=== PATIENT | male | born 1960 | race Two or more races ===

== ENCOUNTER 2022-04-22 14:27 | Inpatient (IN) | payer MEDICAID ==
[~2022-04-22] VITALS: Ht 177.8 cm; Wt 123.0 kg
[2022-04-22] MEDS ORDERED: ASPirin 325 MG TAB PO ONE (14:45)
[2022-04-22] MEDS ORDERED: NITROGLYCERIN 0.4 MG SL TAB SL ONE (14:45)
[2022-04-22 15:01] LABS: Eosinophils # (auto) 0.1 10 ^3/uL (0-0.8); Hemoglobin 15.4 g/dL (13.5-17.5); Neutrophils # (auto) 5.6 10 ^3/uL (1.6-8.6); White Blood Cell 8.3 10^3/uL (4.4-10.8)
[2022-04-22 15:02] LABS: Basophils # (auto) 0.1 10 ^3/uL (0-0.2); Basophils % (auto) 0.9 % (0.0-2.0); Eosinophils % (auto) 0.7 % (0.0-7.0); Hematocrit 45.2 % (41.0-53.0); Lymphocytes % (auto) 24.7 % (10.0-50.0); Mean Corpuscular Hemoglobin 25.9 pg (28.0-32.0); Mean Corpuscular Hgb Conc. 34.1 g/dL (32.0-36.0); Monocytes # (auto) 0.5 10 ^3/uL (0-1.3); Monocytes % (auto) 6.1 % (0.0-12.0); Neutrophils % (auto) 67.6 % (37.0-80.0); Nucleated Red Blood Cells % 0.2 %; Red Blood Cells 5.95 10^6/uL (4.5-5.90); Red Cell Distribution Width 14.4 % (11.8-14.3)
[2022-04-22 16:06] LABS: Albumin 3.6 g/dL (3.4-5.0); Calcium 9.4 mg/dL (8.5-10.1); Magnesium 2.2 mg/dL (1.6-2.6); Potassium 3.4 mmol/L (3.5-5.1)
[2022-04-22 16:09] LABS: BUN/Creatinine Ratio 17.5; Bilirubin, Total 1.2 mg/dL (0.2-1.0); Total Protein 7.8 g/dL (6.4-8.2)
[2022-04-22] MEDS ORDERED: MORPHINE SULFATE 4 MG/ML SYR/VIAL IV PRN (18:45)
[2022-04-22] MEDS ORDERED: ONDANSETRON HCL 4 MG/2 ML VIAL IV PRN (18:45)
[2022-04-22] MEDS ORDERED: NITROGLYCERIN 0.4 MG SL TAB SL PRN (18:45)
[2022-04-22] MEDS ORDERED: ACETAMINOPHEN 325 MG TAB PO PRN (18:45)
[2022-04-22] MEDS ORDERED: ENOXAPARIN SOD 30 MG/0.3 ML SYRINGE IV ONE (18:45)
[2022-04-22 19:04] LABS: INR 0.99 (0.9-1.15)
[2022-04-22] MEDS ORDERED: ATORVASTATIN 20 MG TAB PO SCH (22:00)
[2022-04-22 23:31] VITALS: BP 134/87
[2022-04-23 05:00] VITALS: BP 134/92
[2022-04-23 06:01] LABS: Basophils # (auto) 0 10 ^3/uL (0-0.2); Eosinophils # (auto) 0.1 10 ^3/uL (0-0.8); Hemoglobin 14.4 g/dL (13.5-17.5); Mean Corpuscular Hemoglobin 25.5 pg (28.0-32.0); Monocytes # (auto) 0.5 10 ^3/uL (0-1.3); Neutrophils # (auto) 5.1 10 ^3/uL (1.6-8.6); Nucleated Red Blood Cells % 0.1 %; White Blood Cell 7.4 10^3/uL (4.4-10.8)
[2022-04-23 06:03] LABS: Basophils % (auto) 0.6 % (0.0-2.0); Eosinophils % (auto) 1.3 % (0.0-7.0); Hematocrit 42.9 % (41.0-53.0); Lymphocytes # (auto) 1.7 10 ^3/uL (0.4-5.4); Lymphocytes % (auto) 22.7 % (10.0-50.0); Mean Corpuscular Hgb Conc. 33.5 g/dL (32.0-36.0); Mean Corpuscular Volume 76.1 fL (80.0-100.0); Monocytes % (auto) 6.9 % (0.0-12.0); Neutrophils % (auto) 68.5 % (37.0-80.0); Red Blood Cells 5.64 10^6/uL (4.5-5.90); Red Cell Distribution Width 14.5 % (11.8-14.3)
[2022-04-23 06:10] LABS: Calcium 9.2 mg/dL (8.5-10.1); Potassium 3.7 mmol/L (3.5-5.1)
[2022-04-23 06:12] LABS: BUN/Creatinine Ratio 22.4
[2022-04-23 08:00] VITALS: BP 142/97
[2022-04-23 09:00] VITALS: BP 130/98
[2022-04-23] MEDS ORDERED: DOCUSATE SOD 100 MG CAP PO SCH (10:00)
[2022-04-23] MEDS ORDERED: ASPirin 81 mg TAB PO SCH (10:00)
[2022-04-23] MEDS ORDERED: LISINOPRIL 10 MG TAB PO SCH (10:00)
[2022-04-23] MEDS ORDERED: ENOXAPARIN SOD 40 MG/0.4 ML SYRINGE SC SCH (10:00)
[2022-04-23] MEDS ORDERED: ASPI-325 PO (12:56)
[2022-04-23 13:00] VITALS: BP 142/97
[2022-04-23 15:16] VITALS: BP 130/98
== END 2022-04-23 18:00 | disposition home health service (06) | DRG 203 ==
LOC: ER 14:27 → TELE 18:41 → TELE-EAST 23:25
PROVIDERS: ADMIT Nurse Practitioner Family; ATTEND Nurse Practitioner Family
DX: R07.9 Chest pain, unspecified (principal); E66.9 Obesity, unspecified; E78.5 Hyperlipidemia, unspecified; I10 Essential (primary) hypertension; Z20.822 Contact with and (suspected) exposure to COVID-19; I48.91 Unspecified atrial fibrillation; Z79.01 Long term (current) use of anticoagulants; Z79.82 Long term (current) use of aspirin; Z68.38 Body mass index [BMI] 38.0-38.9, adult
CPT/HCPCS: 36415; 36600; 71046; 80048; 80053; 82805; 83735; 83880; 84484; 85025; 85379; 85610; 87426; 93005; 93306; G0378

== ENCOUNTER 2024-05-04 11:04 | Emergency (ER) | payer MEDICARE, MEDICAID ==
[~2024-05-04] VITALS: Ht 177.8 cm; Wt 117.0 kg
[~2024-05-04 11:04] MED LIST: ASPI-325 PO
[2024-05-04 11:12] VITALS: BP 154/98; PULSE 118; RESP 20; O2SAT 96
--- NOTE | 2024-05-04 11:42 | ED.PDOC ---
Musculoskeletal HPI Comments 63Y M with PMHx Afib and HTN presents to ED for chief complaint lt knee pain s/p fall. Pt states he tripped and fell 2 weeks ago and hurt his left knee. Pt did experience LOC. Pt denies headache, back pain, neck pain, chest pain, and SOB. Pt is unable to bear weight on lt knee and has limited ROM. Pt is taking blood thinners. Chief Complaint: Fall Injury Time Seen by MD: 11:11 Primary Care Provider: Unsure Reviewed Notes: Medications, Allergies Allergies: Coded Allergies: NO KNOWN ALLERGIES (Unverified , 03/22/14) Home Meds Active Scripts Aspirin (Aspirin Low Dose) 81 Mg Tab, 81 MG PO DAILY, #30 TAB Prov:KELTON DENISE MD 04/23/22 Information Source: Patient, Relative (Child) Mode of Arrival: Ambulatory Location: Left Extremity Location: Knee Timing: Weeks Severity: Moderate Able to Move Extremity: Yes Bear Weight: No Pain: Moderate Mechanism: Unknown Circumstances: Fall Onset of Symptoms: After Trauma Symptoms: Pain DVT Risk Factors: NONE Last Tetanus: UTD Associated signs and symptoms: Knee pain (left) Past Medical History PAST MEDICAL HISTORY: AFIB, HTN Surgical History: Denies all surgeries Family History Family History: Unobtainable Social History Smoker: Non-Smoker Alcohol: Denies ETOH Use Drugs: Denies Drug Use Lives In: Home Constitutional: denies: chills, diaphoresis, fatigue, fever, malaise, sweats, weakness, others EENTM: denies: blurred vision, double vision, ear bleeding, ear discharge, ear drainage, ear pain, ear ringing, eye pain, eye redness, hearing loss, mouth pain, mouth swelling, nasal discharge, nose bleeding, nose congestion, nose pain, photophobia, tearing, throat pain, throat swelling, voice changes, others Respiratory: denies: cough, hemoptysis, orthopnea, SOB at rest, shortness of breath, SOB with excertion, stridor, wheezing, others Cardiovascular: denies: chest pain, dizzy spells, diaphoresis, Dyspnea on exertion, edema, irregular heart beat, left arm pain, lightheadedness, palpitations, PND, syncope, others Gastrointestinal: denies: abdomen distended, abdominal pain, blood streaked bowels, constipated, diarrhea, dysphagia, difficulty swallowing, hematemesis, melena, nausea, poor appetite, poor fluid intake, rectal bleeding, rectal pain, vomiting, others Genitourinary: denies: burning, dysuria, flank pain, frequency, hematuria, incontinence, penile discharge, penile sore, pain, testicle pain, testicle swelling, urgency, others Neurological: denies: dizziness, fainting, headache, left sided numbness, left sided weakness, numbness, paresthesia, pre-existing deficit, right sided numbness, right sided weakness, seizure, speech problems, tingling, tremors, weakness, others Musculoskeletal: reports: others (lt knee pain); denies: back pain, gout, joint pain, joint swelling, muscle pain, muscle stiffness, neck pain Integumetry: denies: bruises, change in color, change in hair/nails, dryness, laceration, lesions, lumps, rash, wounds, others Allergic/Immunocompromised: denies: Difficulty Healing, Frequent Infections, Hives, Itching, others Hematologic/Lymphatic: denies: anemia, blood clots, easy bleeding, easy bruising, swollen glands, others Endocrine: denies: excessive hunger, excessive sweating, excessive thirst, excessive urination, flushing, intolerance to cold, intolerance to heat, unexplained weight gain, unexplained weight loss, others Psychiatric: denies: anxiety, bipolar disorder, depression, hopeless, panic disorder, schizophrenia, sleepless, suicidal, others All Other Systems: Reviewed and Negative Physical Exam General Appearance: Moderate Distress, Normal HEENT: Normal ENT Inspection, Pharynx Normal, TMs Normal Neck: Full Range of Motion, Non-Tender, Normal, Normal Inspection Respiratory: Chest Non-Tender, Lungs Clear, No Accessory Muscle Use, No Respiratory Distress, Normal Breath Sounds Cardiovascular: Irregular, No Edema, No JVD, No Murmur, No Gallop, Normal Peripheral Pulses Breast Exam: Deferred Gastrointestinal: No Organomegaly, Non Tender, No Pulsatile Mass, Normal Bowel Sounds, Soft Genitalia: Deferred Pelvic: Deferred Rectal: Deferred Extremities: No calf tenderness, Normal capillary refill, Normal inspection, Normal range of motion, Non-tender, No pedal edema Musculoskeletal : Apperance: Normal Neurologic: Alert, sewing techniques demonstrator II-XII nml as Tested, No Motor Deficits, Normal Affect, Normal Mood, No Sensory Deficits Cerebellar Function: NOT DONE Reflexes: NOT DONE Skin: Dry, Normal Color, Warm Peripheral Pulses: 3+ Radial (R), 3+ Radial (L) Lymphatic: No Adenopathy Was a procedure done? Was a procedure done?: No Differential Diagnosis EXT Differential Diagnosis: Fracture, Sprain, Dislocation, Contusion, Strain X-Ray, Labs, Meds, VS Vital Signs Date Time Temp Pulse Resp B/P (MAP) Pulse Ox O2 Delivery O2 Flow Rate FiO2 05/04/24 11:12 98.0 118 20 154/98 (116) 96 Lab Test 05/04/24 11:54 Range/Units White Blood Count 7.0 4.4-10.8 10^3/uL Red Blood Count 5.91 H 4.5-5.90 10^6/uL Hemoglobin 15.5 13.5-17.5 g/dL Hematocrit 45.8 41.0-53.0 % Mean Corpuscular Volume 77.5 L 80.0-100.0 fL Mean Corpuscular Hemoglobin 26.1 L 28.0-32.0 pg Mean Corpuscular Hemoglobin Concent 33.7 32.0-36.0 g/dL Red Cell Distribution Width 15.4 H 11.8-14.3 % Platelet Count 275 140-450 10^3/uL Mean Platelet Volume 8.2 6.9-10.8 fL Neutrophils (%) (Auto) 67.5 37.0-80.0 % Lymphocytes (%) (Auto) 25.0 10.0-50.0 % Monocytes (%) (Auto) 6.1 0.0-12.0 % Eosinophils (%) (Auto) 1.0 0.0-7.0 % Basophils (%) (Auto) 0.4 0.0-2.0 % Neutrophils # (Auto) 4.7 1.6-8.6 10 ^3/uL Lymphocytes # (Auto) 1.7 0.4-5.4 10 ^3/uL Monocytes # (Auto) 0.4 0-1.3 10 ^3/uL Eosinophils # (Auto) 0.1 0-0.8 10 ^3/uL Basophils # (Auto) 0 0-0.2 10 ^3/uL Nucleated Red Blood Cells 0.1 % Sodium Level 140 136-145 mmol/L Potassium Level 3.2 L 3.5-5.1 mmol/L Chloride Level 107 98-107 mmol/L Carbon Dioxide Level 25 20-31 mmol/L Anion Gap 8 5-15 Blood Urea Nitrogen 24 H 9-23 mg/dL Creatinine 1.16 0.700-1.30 mg/dL Glomerular Filtration Rate Calc 70 >90 mL/min BUN/Creatinine Ratio 20.7 H 10.0-20.0 Serum Glucose 139 H 74-106 mg/dL Calcium Level 10.0 8.7-10.4 mg/dL Lt Knee XR: FINDINGS: No fracture is identified. Medial, lateral and patellofemoral compartment joint spaces are maintained. Alignment is anatomic. Soft tissues are within normal limits. There is a knee joint effusion. IMPRESSION: 1. No acute fracture or dislocation of the left knee. Knee joint effusion. Patient alert. Came in because of left knee pain. He did fall two weeks ago. Vitals stable. Has not seen any physician after the fall. X-ray of the knee is within normal limits. There is joint effusion. WBC within normal limits. EKG does show atrial fibrillation. Continues to have knee pain. Tachycardia. Blood pressure elevated. Possibly will need MRI. Explained to the patient. Continue cardiac monitoring. [facility] physician spoke to the patient. Spoke with orthopedic surgeon. Nothing to do inpatient. Was told to follow up with his primary care physician with orthopedic follow up. Placed a knee brace. Explained to the patient. Shortness a breath. Denies chest pain. No leg swelling. Was told to come back if there is any problem. Time of 1ST Reevaluation: 11:41 Reevaluation 1ST: Unchanged Patient Education/Counseling: Diagnosis, Treatment Family Education/Counseling: No Family Present Departure 1 Departure Time of Disposition: 15:57 Impression: Primary Impression: Atrial fibrillation Qualified Codes: I48.0 - Paroxysmal atrial fibrillation Additional Impression: Knee strain Qualified Codes: S86.912A - Strain of unspecified muscle(s) and tendon(s) at lower leg level, left leg, initial encounter Disposition: HOME / SELF CARE / HOMELESS Admit to: Med Surg Condition: Good Discharged With: Self Critical Care Note Critical Care Time?: No Stability Stability form required: No Heart Score Heart Score: Heart Score Response (Comments) Value History Slightly Suspicious 0 EKG Normal 0 Age >65 2 Risk Factors >3 or Hx ASHD 2 Troponin Normal limit 0 Total 4 I personally scribed for TOMASZ CURTIS MD ([email or web address]) on 05/04/24 at 11:42. Electronically submitted by Payton Zuluaga ([email or web address]). I personally scribed for TOMASZ CURTIS MD ([email or web address]) on 05/04/24 at 13:28. Electronically submitted by Rebel Kim ([email or web address]). I personally scribed for TOMASZ CURTIS MD ([email or web address]) on 05/04/24 at 13:33. Electronically submitted by Berna Seo ([email or web address]). I personally scribed for TOMASZ CURTIS MD ([email or web address]) on 05/04/24 at 14:06. Electronically submitted by Berna Seo ([email or web address]). I personally scribed for TOMASZ CURTIS MD ([email or web address]) on 05/04/24 at 14:30. Electronically submitted by Payton Zuluaga ([email or web address]). I personally scribed for TOMASZ CURTIS MD ([email or web address]) on 05/04/24 at 17:08. Electronically submitted by Berna Seo ([email or web address]). TOMASZ CURTIS MD May 04, 2024 11:42
--- NOTE | 2024-05-04 12:01 | DVH ---
XY L KNEE 2V XRAY INDICATION: fall TECHNICAL DATA: Frontal , oblique and lateral views were obtained of the left knee. COMPARISON: None FINDINGS: No fracture is identified. Medial, lateral and patellofemoral compartment joint spaces are maintained . Alignment is anatomic. Soft tissues are within normal limits. There is a knee joint effusion. IMPRESSION: 1. No acute fracture or dislocation of the left knee. Knee joint effusion.
[2024-05-04 12:14] LABS: Sodium 140 mmol/L (136-145)
[2024-05-04 12:15] LABS: Anion Gap 8 (5-15); Carbon Dioxide 25 mmol/L (20-31)
[2024-05-04 12:18] LABS: Basophils # (auto) 0 10 ^3/uL (0-0.2); Eosinophils # (auto) 0.1 10 ^3/uL (0-0.8); Neutrophils # (auto) 4.7 10 ^3/uL (1.6-8.6)
[2024-05-04 12:20] LABS: BUN/Creatinine Ratio 20.7 (10.0-20.0); Basophils % (auto) 0.4 % (0.0-2.0); Hematocrit 45.8 % (41.0-53.0); Hemoglobin 15.5 g/dL (13.5-17.5); Lymphocytes # (auto) 1.7 10 ^3/uL (0.4-5.4); Mean Corpuscular Hemoglobin 26.1 pg (28.0-32.0); Mean Corpuscular Hgb Conc. 33.7 g/dL (32.0-36.0); Mean Corpuscular Volume 77.5 fL (80.0-100.0); Monocytes # (auto) 0.4 10 ^3/uL (0-1.3); Monocytes % (auto) 6.1 % (0.0-12.0); Neutrophils % (auto) 67.5 % (37.0-80.0); Nucleated Red Blood Cells % 0.1 %; Platelet Count (auto) 275 10^3/uL (140-450); Red Blood Cells 5.91 10^6/uL (4.5-5.90); Red Cell Distribution Width 15.4 % (11.8-14.3)
[2024-05-04 12:22] LABS: Blood Urea Nitrogen 24 mg/dL (9-23); Chloride 107 mmol/L (98-107); Glucose 139 mg/dL (74-106); Potassium 3.2 mmol/L (3.5-5.1)
--- NOTE | 2024-05-04 16:34 | DVHHP2 ---
History of Present Illness Reason for Visit: Left knee pain status post part 2 weeks ago, chronic AFib History of Present Illness 63-year-old male with known history of chronic AFib, hypertension, morbid obesity class 2 who needs treatment of the hospital with left knee pain status post fall 2 weeks ago. The patient stated that he fell 2 weeks ago and injured his left knee bed his range of movements at left knee is very restricted. Patient also could not put weight on left knee. I was consulted for possible admission. Patient complaining of minimal pain 410 in the left knee. Orthopedics was consulted who recommended knee immobilizer on knee brace and MRI left knee. Cardiovascular: AFIB, HTN Past Surgical History: None Family History: None Smoke: No ALCOHOL: none Review of Systems Review of Systems 12 Twelve review of system are negative cm above. Allergies: Coded Allergies: NO KNOWN ALLERGIES (Unverified , 03/22/14) Exam Vital Signs Vital Signs Date Time Temp Pulse Resp B/P (MAP) Pulse Ox O2 Delivery O2 Flow Rate FiO2 05/04/24 11:12 98.0 118 20 154/98 (116) 96 Exam HEENT pupils are reactive Neck is supple CV is S1-S2 regular rate and rhythm Respiratory diminished BS on bases GI positive bowel sound Extremity no pedal edema REGISTERED REPRESENTATIVE no motor deficits except left lower extremity can not be tested because of ligamental injury to the left knee Labs/Xrays Labs Test 05/04/24 11:54 Range/Units White Blood Count 7.0 4.4-10.8 10^3/uL Red Blood Count 5.91 H 4.5-5.90 10^6/uL Hemoglobin 15.5 13.5-17.5 g/dL Hematocrit 45.8 41.0-53.0 % Mean Corpuscular Volume 77.5 L 80.0-100.0 fL Mean Corpuscular Hemoglobin 26.1 L 28.0-32.0 pg Mean Corpuscular Hemoglobin Concent 33.7 32.0-36.0 g/dL Red Cell Distribution Width 15.4 H 11.8-14.3 % Platelet Count 275 140-450 10^3/uL Mean Platelet Volume 8.2 6.9-10.8 fL Neutrophils (%) (Auto) 67.5 37.0-80.0 % Lymphocytes (%) (Auto) 25.0 10.0-50.0 % Monocytes (%) (Auto) 6.1 0.0-12.0 % Eosinophils (%) (Auto) 1.0 0.0-7.0 % Basophils (%) (Auto) 0.4 0.0-2.0 % Neutrophils # (Auto) 4.7 1.6-8.6 10 ^3/uL Lymphocytes # (Auto) 1.7 0.4-5.4 10 ^3/uL Monocytes # (Auto) 0.4 0-1.3 10 ^3/uL Eosinophils # (Auto) 0.1 0-0.8 10 ^3/uL Basophils # (Auto) 0 0-0.2 10 ^3/uL Nucleated Red Blood Cells 0.1 % Sodium Level 140 136-145 mmol/L Potassium Level 3.2 L 3.5-5.1 mmol/L Chloride Level 107 98-107 mmol/L Carbon Dioxide Level 25 20-31 mmol/L Anion Gap 8 5-15 Blood Urea Nitrogen 24 H 9-23 mg/dL Creatinine 1.16 0.700-1.30 mg/dL Glomerular Filtration Rate Calc 70 >90 mL/min BUN/Creatinine Ratio 20.7 H 10.0-20.0 Serum Glucose 139 H 74-106 mg/dL Calcium Level 10.0 8.7-10.4 mg/dL Assessment/Plan Assessment/Plan 63-year-old male with a known history of chronic AFib, hypertension, morbid obesity class 2 additional the hospital with left knee pain status post fall 2 weeks ago found to have 1. Left knee pain 2. Left knee collateral ligament injury 3. Chronic AFib 4. Hypertension 5. Morbid obesity class 2 -knee brace/knee immobilizer, pain meds, MRI left knee. Orthopedic consultation. Plan discussed with: Patient Date of Service: May 04, 2024 Billing Provider: ANTONIA DAVILA MD Common Visit Codes: NOT BILLABLE ANTONIA DAVILA MD May 04, 2024 16:34
== END 2024-05-04 19:00 | disposition home or self-care (01) ==
LOC: ER 11:04
DX: S86.912A Strain of unspecified muscle(s) and tendon(s) at lower leg level, left leg, initial encounter (principal); I48.0 Paroxysmal atrial fibrillation; I10 Essential (primary) hypertension; Z79.82 Long term (current) use of aspirin; Z79.899 Other long term (current) drug therapy; W01.0XXA Fall on same level from slipping, tripping and stumbling without subsequent striking against object, initial encounter; Y93.89 Activity, other specified; Y92.89 Other specified places as the place of occurrence of the external cause; Y99.8 Other external cause status
CPT/HCPCS: 36415; 73560; 80048; 85025

== ENCOUNTER 2025-02-28 15:22 | Inpatient (IN) | payer MEDICARE, MEDICAID ==
[~2025-02-28] VITALS: Ht 180.3 cm; Wt 112.3 kg
--- NOTE | 2025-02-28 16:00 | ED.PDOC ---
Back pain HPI HPI Comments A 64 YEAR OLD MALE PRESENTS TO THE ED WITH COMPLAINT OF LOWER BACK PAIN. PATIENT STATES HE HAS BEEN EXPERIENCING LOWER BACK PAIN THAT RADIATES DOWN HIS RIGHT LEG OFF AND ON FOR THE PAST 1 MONTH WITH WORSENING PAIN OVER THE PAST 1 WEEK. PATIENT REPORTS HIS PAIN IS WORSE WITH MOVEMENT. PATIENT NOTES THAT HE HAS ALREADY SEEN HIS PRIMARY CARE PHYSICIAN FOR THIS ISSUE AND WAS PRESCRIBED FLEXERIL, BUT NOTES THERE HAS BEEN NO IMPROVEMENT IN HIS PAIN. THE PAIN LEVEL IS 10/10 AT THIS TIME. PT REQUESTS PAIN INJECTION. PATIENT DENIES SADDLE ANESTHESIA, URINARY INCONTINENCE, BOWEL INCONTINENCE, FEVER, CHILLS, SHORTNESS OF BREATH, CHEST PAIN, ABDOMINAL PAIN, NAUSEA, VOMITING, HEADACHE, OR OTHER COMPLAINTS. NO OTHER SYMPTOMS OR MODIFYING FACTORS AT THIS TIME. PATIENT IS ALERT, ORIENTED X 4, AND HAS STEADY GAIT. Chief Complaint: Back Pain Time Seen by MD: 15:25 Primary Care Provider: Unsure Reviewed Notes: Nurses Notes, Medications, Allergies Allergies: Coded Allergies: NO KNOWN ALLERGIES (Unverified , 03/22/14) Home Meds Active Scripts Aspirin (Aspirin Low Dose) 81 Mg Tab, 81 MG PO DAILY, #30 TAB Prov:KELTON DENISE MD 04/23/22 Information Source: Patient Mode of Arrival: Ambulatory Timing: Days Duration: Since onset, Days Location of Back pain: (B) Lumbar Radiates to: Anterior: (R) Buttocks, (R) Calf, (R) Thigh Radiates to: Posterior: (R) Buttocks, (R) Calf, (R) Thigh Radiates to: Medial: (R) Buttocks, (R) Calf, (R) Thigh Radiates to: Lateral: (R) Buttocks, (R) Calf, (R) Thigh Severity: Moderate Prehospital treatment: None Quality: Aching, Cramping, Sharp Onset: Spontaneous History of: None Modifying Factors: Movement, Twisting, Walking Associated signs and symptoms: None Past Medical History PAST MEDICAL HISTORY: AFIB, HTN Past Medical History (Other): BPH Surgical History: Denies all surgeries Family History Family History: Reviewed,noncontributory to illness Social History Smoker: Non-Smoker Alcohol: Denies ETOH Use Drugs: Denies Drug Use Lives In: Home Constitutional: reports: others (ANXIOUS ); denies: chills, diaphoresis, fatigue, fever, malaise, sweats, weakness EENTM: denies: blurred vision, double vision, ear bleeding, ear discharge, ear drainage, ear pain, ear ringing, eye pain, eye redness, hearing loss, mouth pain, mouth swelling, nasal discharge, nose bleeding, nose congestion, nose pain, photophobia, tearing, throat pain, throat swelling, voice changes, others Respiratory: denies: cough, hemoptysis, orthopnea, SOB at rest, shortness of breath, SOB with excertion, stridor, wheezing, others Cardiovascular: denies: chest pain, dizzy spells, diaphoresis, Dyspnea on exertion, edema, irregular heart beat, left arm pain, lightheadedness, pa lpitations, PND, syncope, others Gastrointestinal: denies: abdomen distended, abdominal pain, blood streaked bowels, constipated, diarrhea, dysphagia, difficulty swallowing, hematemesis, melena, nausea, poor appetite, poor fluid intake, rectal bleeding, rectal pain, vomiting, others Genitourinary: denies: burning, dysuria, flank pain, frequency, hematuria, incontinence, penile discharge, penile sore, pain, testicle pain, testicle swelling, urgency, others Neurological: denies: dizziness, fainting, headache, left sided numbness, left sided weakness, numbness, paresthesia, pre-existing deficit, right sided numbness, right sided weakness, seizure, speech problems, tingling, tremors, weakness, others Musculoskeletal: reports: back pain, muscle pain; denies: gout, joint pain, joint swelling, muscle stiffness, neck pain, others Integumetry: denies: bruises, change in color, change in hair/nails, dryness, laceration, lesions, lumps, rash, wounds, others Allergic/Immunocompromised: denies: Difficulty Healing, Frequent Infections, Hives, Itching, others Hematologic/Lymphatic: denies: anemia, blood clots, easy bleeding, easy bruising, swollen glands, others Endocrine: denies: excessive hunger, excessive sweating, excessive thirst, excessive urination, flushing, intolerance to cold, intolerance to heat, unex plained weight gain, unexplained weight loss, others Psychiatric: denies: anxiety, bipolar disorder, depression, hopeless, panic disorder, schizophrenia, sleepless, suicidal, others All Other Systems: Reviewed and Negative Physical Exam General Appearance: Moderate Distress, Obese, Other (ANXIOUS ) HEENT: Normal ENT Inspection, PERRL/EOMI, Pharynx Normal, TMs Normal Neck: Full Range of Motion, Non-Tender, Normal, Normal Inspection Respiratory: Chest Non-Tender, Lungs Clear, No Accessory Muscle Use, No Respiratory Distress, Normal Breath Sounds Cardiovascular: No Edema, No JVD, No Murmur, No Gallop, Normal Peripheral Pulses, Regular Rate/Rhythm Breast Exam: Deferred Gastrointestinal: No Organomegaly, Non Tender, No Pulsatile Mass, Normal Bowel Sounds, Soft Genitalia: Deferred Pelvic: Deferred Rectal: Deferred Extremities: No calf tenderness, Normal capillary refill, Normal inspection, Normal range of motion, Non-tender, No pedal edema, Other (NO REDNESS, SWELLING AND DVT OF RIGHT LOWER EXTREMITY, NO DVT SIGNS. ) Musculoskeletal : Location: Bilateral Extremity Location: Back Apperance: Tenderness: Moderate (TENDERNESS AND MUSCLE SPASM ON LOW BACK, NO BONY TENDERNESS, SWELLING AND DEFORMITY. NO CVA TENDERNESS. ) Neurologic: Alert, day habilitation supervisor II-XII nml as Tested, No Motor Deficits, Normal Affect, Normal Mood, No Sensory Deficits Cerebellar Function: Normal Reflexes: Normal Skin: Dry, Normal Color, Warm Peripheral Pulses: 2+ carotid (R), 2+ carotid (L), 2+ dorsalis pedis (R), 2+ dorsalis pedis (L) Lymphatic: No Adenopathy Was a procedure done? Was a procedure done?: No Back Pain Differential Dx Differential Diagnosis: Musculoskeletal Pain Other Differential Diagnosis DDD, LUMBAR RADICULOPATHY, SPINAL STENOSIS X-Ray, Labs, Meds, VS Vital Signs Date Time Temp Pulse Resp B/P (MAP) Pulse Ox O2 Delivery O2 Flow Rate FiO2 02/28/25 17:16 98 18 96 Room Air 02/28/25 17:16 98.7 98 18 124/90 (101) 96 98.7 02/28/25 16:43 84 18 125/86 02/28/25 15:25 97.4 77 18 122/92 98 97.4 Lab Test 02/28/25 17:22 02/28/25 17:12 Range/Units Urine Color Pending Urine Clarity Pending Urine pH Pending Urine Specific [place] Pending Urine Protein Pending Urine Ketones Pending Urine Blood Pending Urine Nitrite Pending Urine Bilirubin Pending Urine Urobilinogen Pending Urine Leukocyte Esterase Pending Urine RBC Pending Urine Microscopic WBC Pending Urine Squamous Epithelial Cells Pending Urine Bacteria Pending Urine Glucose Pending White Blood Count 9.9 4.4-10.8 10^3/uL Red Blood Count 5.57 4.5-5.90 10^6/uL Hemoglobin 14.1 13.5-17.5 g/dL Hematocrit 41.4 41.0-53.0 % Mean Corpuscular Volume 74.3 L 80.0-100.0 fL Mean Corpuscular Hemoglobin 25.4 L 28.0-32.0 pg Mean Corpuscular Hemoglobin Concent 34.2 32.0-36.0 g/dL Red Cell Distribution Width 13.6 11.8-14.3 % Platelet Count 397 140-450 10^3/uL Mean Platelet Volume 7.8 6.9-10.8 fL Neutrophils (%) (Auto) 74.5 37.0-80.0 % Lymphocytes (%) (Auto) 13.8 10.0-50.0 % Monocytes (%) (Auto) 8.1 0.0-12.0 % Eosinophils (%) (Auto) 3.0 0.0-7.0 % Basophils (%) (Auto) 0.6 0.0-2.0 % Neutrophils # (Auto) 7.4 1.6-8.6 10 ^3/uL Lymphocytes # (Auto) 1.4 0.4-5.4 10 ^3/uL Monocytes # (Auto) 0.8 0-1.3 10 ^3/uL Eosinophils # (Auto) 0.3 0-0.8 10 ^3/uL Basophils # (Auto) 0.1 0-0.2 10 ^3/uL Nucleated Red Blood Cells 0.2 % Sodium Level 139 136-145 mmol/L Potassium Level 3.4 L 3.5-5.1 mmol/L Chloride Level 103 98-107 mmol/L Carbon Dioxide Level 27 20-31 mmol/L Anion Gap 9 5-15 Blood Urea Nitrogen 22 9-23 mg/dL Creatinine 1.27 0.700-1.30 mg/dL Glomerular Filtration Rate Calc 62 >90 mL/min BUN/Creatinine Ratio 17.3 10.0-20.0 Serum Glucose 84 74-106 mg/dL Calcium Level 9.5 8.7-10.4 mg/dL Current Medications Medications (Trade) Dose Ordered Sig/Lance Route Start Time Stop Time Status Last Admin Ondansetron HCl (Zofran Po) 4 mg ONCE ONCE PO 02/28/25 16:30 02/28/25 16:31 DC 02/28/25 16:42 Hydromorphone HCl (Dilaudid Injection) 2 mg ONCE ONCE IM 02/28/25 16:30 02/28/25 16:31 DC 02/28/25 16:43 PATIENT: SHANNAN SANDHU EACCT: [id number]: [id number] : 1960 LOC: ER ROOM / BED: / AGE / SEX: 64 / M ADM STATUS: REG ER SERVICE 1540 ORDERING PHYSICIAN: LATA SAEZ PROCEDURE(s): LS2CT - LS SPINE WO CONTRAST REASON: LOW BACK PAIN TO RIGHT GROIN AND THIGH ORDER NUMBER(s): [id number], ACCESSION NUMBER(s): [id number] CT LS SPINE WO CONTRAST Indication: LOW BACK PAIN TO RIGHT GROIN AND THIGH EXAM DATE: 02/28/2025 03:40 PM COMPARISON: None TECHNIQUE: CT of the lumbar spine without intravenous contrast. RADIATION DOSE: CTDIvol: 38.94 mGy, DLP: 38.94 mGy*cm FINDINGS: The lumbar vertebral body heights are maintained. Moderate multilevel disc space narrowing. Alignment preserved. Prominent anterior osteophytosis. Moderate facet hypertrophic changes. Moderate to severe left and moderate right neural foraminal stenosis at L5-S1. Moderate bilateral neural foraminal stenosis L4-5. [id number] neural foraminal stenosis L3-4 bilaterally. Abdominal aortic atherosclerotic disease. Moderate bilateral sacroiliac degenerative disease, [id number]-[id number]-left. IMPRESSION: Moderate lumbar degenerative disc disease. ATED BY: NAZIA PAULINO MD DICTATED DATE/TIME: 02/28/251628 SIGNED BY: NAZIA PAULINO MD SIGNED DATE/TIME: 02/28/251628 CC: X-Ray, Labs, Meds, VS Comment EXTERNAL MEDICAL RECORDS REVIEWED: [NONE] INDEPENDENT HISTORIANS: [NONE] SOCIAL DETERMINANTS OF HEALTH: [NONE] LABS ORDERED: CBC, BMP, UA REVIEWED AND INTERPRETED RESULTS: NORMAL IMAGING ORDERED: CT L-SPINE TREATMENTS ORDERED: DILAUDID 2 MG IM, ZOFRAN 4 MG P.O. 0.9 NS 150ML/HOUR PROCEDURES PERFORMED: NONE CRITICAL CARE TIME: NONE I HAVE DISCUSSED THE PATIENT WITH THE ATTENDING PHYSICIAN DR. CURTIS AND HE AGREES WITH THE PATIENT'S PLAN OF CARE. UPON MY PHYSICAL EXAMINATION, THE PATIENT HAD TENDERNESS NOTED UPON PALPATION TO HIS LUMBAR SPINE AND APPEARED TO BE IN SEVERE PAIN DESPITE GIVING THE PATIENT NARCOTIC PAIN MEDICINE HERE IN THE ED. DUE TO THE PATIENT'S INTRACTABLE PAIN AND CT SCAN RESULTS REVEALING MODERATE TO SEVERE DDD AND SPINAL STENOSIS, I HAVE DETERMINED THE PATIENT NEEDS TO BE ADMITTED FOR FURTHER TREATMENT AND EVALUATION. ON-CALL HOSPITALIST WILL BE CONTACTED FOR EVALUATION OF THIS PATIENT. Images Reviewed?: Images reviewed and evaluated by me Time of 1ST Reevaluation: 18:00 Reevaluation 1ST: Unchanged Patient Education/Counseling: Diagnosis, Treatment Family Education/Counseling: Diagnosis, Treatment SEPSIS Sepsis Screen Date sepsis recognized/suspect: Feb 28, 2025 Time Sepsis recognized/suspect: 1528 Recent Procedure: No On Antibiotic Therapy: No Respiratory Rate >20: No Heart Rate >90: No Temp<36 C (96.8 F) or >38.3 C: No SBP <90 or MAP <65 mmHG: No New Acute Mental Status Change: No Is the patient on CPAP, BIPAP,: No Physician Orders Ls Spine Wo Contrast (02/28/25 15:40) Urinalysis (02/28/25 16:50) Heplock Iv (02/28/25 ) Sodium Chloride 0.9% (02/28/25 17:00) Vital Signs Date Time Temp Pulse Resp B/P (MAP) Pulse Ox O2 Delivery O2 Flow Rate FiO2 02/28/25 17:16 98 18 96 Room Air 02/28/25 17:16 98.7 98 18 124/90 (101) 96 98.7 02/28/25 16:43 84 18 125/86 02/28/25 15:25 97.4 77 18 122/92 98 97.4 Laboratory Tests Test 02/28/25 17:12 White Blood Count 9.9 10^3/uL (4.4-10.8) Medications Medications Dose Ordered Sig/Lance Route Start Time Stop Time Status Last Admin Dose Admin Hydromorphone HCl 2 mg ONCE ONCE IM 02/28/25 16:30 02/28/25 16:31 DC 02/28/25 16:43 Ondansetron HCl 4 mg ONCE ONCE PO 02/28/25 16:30 02/28/25 16:31 DC 02/28/25 16:42 Departure 1 Departure Time of Disposition: 18:00 Impression: Primary Impression: Intractable low back pain Additional Impressions: DDD (degenerative disc disease), lumbar Qualified Codes: M51.362 - Other intervertebral disc degeneration, lumbar region with discogenic back pain and lower extremity pain Lumbar radiculopathy Disposition: ADMITTED INPATIENT Condition: Serious Critical Care Note Critical Care Time?: No Stability Stability form required: Yes Unstable for transfer: Requires medication, ED Physician Assesment, Possible rapid decline I personally scribed for LATA SAEZ ([email or web address]) on 02/28/25 at 16:00. Electronically submitted by Jaron Becker ([email or web address]). I personally scribed for LATA SAEZ ([email or web address]) on 02/28/25 at 16:18. Electronically submitted by Jaron Becker ([email or web address]). I personally scribed for LATA SAEZ ([email or web address]) on 02/28/25 at 16:46. Electronically submitted by Jaron Becker ([email or web address]). I personally scribed for LATA SAEZ PA ([email or web address]) on 02/28/25 at 16:52. Electronically submitted by Jaron Becker ([email or web address]). I personally scribed for LATA SAEZ ([email or web address]) on 02/28/25 at 17:54. Electronically submitted by Jaron Becker ([email or web address]). LATA SAEZ Feb 28, 2025 16:00
--- NOTE | 2025-02-28 16:27 | DVH ---
CT LS SPINE WO CONTRAST Indication: LOW BACK PAIN TO RIGHT GROIN AND THIGH EXAM DATE: 02/28/2025 03:40 PM COMPARISON: None TECHNIQUE: CT of the lumbar spine without intravenous contrast. RADIATION DOSE: CTDIvol: 38.94 mGy, DLP: 38.94 mGy*cm FINDINGS: The lumbar vertebral body heights are maintained. Moderate multilevel disc space narrowing. Alignmen t preserved. Prominent anterior osteophytosis. Moderate facet hypertrophic changes. Moderate to severe left and moderate right neural foraminal stenosis at L5-S1. Moderate bilateral barbie ral foraminal stenosis L4-5. Zstz-je-ewowndgm neural foraminal stenosis L3-4 bilaterally. Abdominal aortic atherosclerotic disease. Moderate bilateral sacroiliac degenerative disease, right-g [id number]. IMPRESSION: Moderate lumbar degenerative disc disease.
[2025-02-28] MEDS ORDERED: MEPERIDINE HCL (50 MG/ML) 1 ML VIAL IM ONE (16:30)
[2025-02-28] MEDS: ONDANSETRON ODT 4 MG TAB PO ONE (16:42)
[2025-02-28] MEDS: HYDROmorphone HCL 2 MG/ML VL/or syr IM ONE (16:43)
[2025-02-28 17:31] LABS: Hemoglobin 14.1 g/dL (13.5-17.5); Nucleated Red Blood Cells % 0.2 %
[2025-02-28 17:33] LABS: Hematocrit 41.4 % (41.0-53.0); Mean Corpuscular Hemoglobin 25.4 pg (28.0-32.0); Mean Corpuscular Volume 74.3 fL (80.0-100.0)
[2025-02-28 17:41] LABS: Chloride 103 mmol/L (98-107); Sodium 139 mmol/L (136-145)
[2025-02-28 17:43] LABS: Anion Gap 9 (5-15); Calcium 9.5 mg/dL (8.7-10.4); Carbon Dioxide 27 mmol/L (20-31); Potassium 3.4 mmol/L (3.5-5.1)
[2025-02-28 17:48] LABS: BUN/Creatinine Ratio 17.3 (10.0-20.0); Blood Urea Nitrogen 22 mg/dL (9-23); Glucose 84 mg/dL (74-106)
[2025-02-28 18:20] LABS: Urine Protein, UAD 1+ (Negative)
--- NOTE | 2025-02-28 22:26 | DVHHPRES ---
History of Present Illness Resident Creating Document: ANGUS HWANG History of Present Illness Patient is a Trinidadian-speaking 64-year-old male with past medical history of bladder cancer, AFib, HTN, BPH, presented to [facility] ED with complaint of lower back pain radiating down his right groin. He reports experiencing intermittent pain for the past month, with significant worsening over the past week. The pain is described as severe, rated 10/10 at the time of evaluation, and is exacerbated by movement. He has previously seen his primary care physician and was prescribed Flexeril, which has not provided any relief. Patient was diagnosed with bladder tumor approximately 6 years ago and underwent surgical resection at that time and underwent another bladder surgery 2 months ago. On evaluation in the ED, patient is afebrile, blood pressure is 122/92 mmHg. Initial labs show potassium 3.4. Lumbar spine CT shows moderate lumbar degenerative disc disease. The patient was placed NPO, started on IV antibiotics and IV fluids. Patient is admitted for further evaluation and management. Review of Systems Review of Systems Eyes: No Pain, No Vision change, No Conjunctivae inflammation, No Eyelid inflammation, No Other, No Redness ENT: No Ear pain, No Ear discharge, No Nose pain, No Nose discharge, No Nose congestion, No Mouth pain, No Mouth swelling, No Throat pain, No Throat swelling, No Other Cardiovascular: No Chest Pain, No Palpitations, No Orthopnea, No Paroxysmal No Dyspnea, No Edema, No Lt Headedness, No Other Respiratory: No Cough, No Dry, No Shortness of breath, No SOB with exertion, No Wheezing, No Hemoptysis, No Pleuritic Pain, No Sputum, No Other Gastrointestinal: No Nausea, No Vomiting, No Abdominal Pain, No Diarrhea, No Constipation, No Melena, No Hematochezia, No Other Genitourinary: No Dysuria, No Frequency, No Incontinence, No Hematuria, No Retention, No Other Musculoskeletal: No other, No neck pain, No shoulder pain, No arm pain, back pain, No hand pain, No leg pain, No foot pain, right groin pain Skin: No Rash, No Lesions, No Jaundice, No Bruising, No Other Allergies: Coded Allergies: NO KNOWN ALLERGIES (Unverified , 03/22/14) Exam Vital Signs Vital Signs Date Time Temp Pulse Resp B/P (MAP) Pulse Ox O2 Delivery O2 Flow Rate FiO2 02/28/25 17:16 98 18 124/90 02/28/25 17:16 96 Room Air 02/28/25 17:16 98.7 98.7 Exam General Appearance: Cooperative. Well developed. Well nourished. NAD Head Exam: Normal inspection Neck Exam: Normal inspection. Non-tender. Normal alignment Pulmonary/Respiratory: Chest non-tender. Clear bilateral breath sounds, no crackles, no wheezing. Cardiovascular/Chest: Regular rate and rhythm. No murmurs. No JVD. Peripheral Pulses: 2+ Radial (R). 2+ Radial (L). 2+ Pedal (R). 2+ Pedal (L) Abdominal Exam: Tenderness on lower back. Normal bowel sounds. Soft. normal abdomen, no visible veins, Nontender. No hepatospenomegaly. No masses Ankle Exam: Negative ankle edema Lower extremities: Negative lower extremity edema Neuro/Mental Status: A&O x4. Coherent. Thoughts/Psych: Normal thought pattern. Appropriate mood and affect. Good judgement and insight Skin Exam: Normal inspection. Normal color. Warm. Dry Labs/Xrays Labs Test 02/28/25 17:22 02/28/25 17:12 Range/Units Urine Color Yellow Yellow Urine Clarity Turbid H Clear Urine pH 5.5 5.0-9.0 Urine Specific [place] 1.030 1.001-1.035 Urine Protein 1+ H Negative Urine Ketones Trace Negative Urine Blood 3+ H Negative /uL Urine Nitrite Negative Negative Urine Bilirubin Negative Negative Urine Urobilinogen Normal Negative mg/dL Urine Leukocyte Esterase 2+ Negative /uL Urine RBC 641 0 - 3 /hpf Urine Microscopic WBC 93 H 0-3 /HPF Urine Squamous Epithelial Cells Few <5 /hpf Urine Bacteria Few H None Seen /hpf Urine Mucus Few None Seen Urine Glucose Normal Normal mg/dL White Blood Count 9.9 4.4-10.8 10^3/uL Red Blood Count 5.57 4.5-5.90 10^6/uL Hemoglobin 14.1 13.5-17.5 g/dL Hematocrit 41.4 41.0-53.0 % Mean Corpuscular Volume 74.3 L 80.0-100.0 fL Mean Corpuscular Hemoglobin 25.4 L 28.0-32.0 pg Mean Corpuscular Hemoglobin Concent 34.2 32.0-36.0 g/dL Red Cell Distribution Width 13.6 11.8-14.3 % Platelet Count 397 140-450 10^3/uL Mean Platelet Volume 7.8 6.9-10.8 fL Neutrophils (%) (Auto) 74.5 37.0-80.0 % Lymphocytes (%) (Auto) 13.8 10.0-50.0 % Monocytes (%) (Auto) 8.1 0.0-12.0 % Eosinophils (%) (Auto) 3.0 0.0-7.0 % Basophils (%) (Auto) 0.6 0.0-2.0 % Neutrophils # (Auto) 7.4 1.6-8.6 10 ^3/uL Lymphocytes # (Auto) 1.4 0.4-5.4 10 ^3/uL Monocytes # (Auto) 0.8 0-1.3 10 ^3/uL Eosinophils # (Auto) 0.3 0-0.8 10 ^3/uL Basophils # (Auto) 0.1 0-0.2 10 ^3/uL Nucleated Red Blood Cells 0.2 % Sodium Level 139 136-145 mmol/L Potassium Level 3.4 L 3.5-5.1 mmol/L Chloride Level 103 98-107 mmol/L Carbon Dioxide Level 27 20-31 mmol/L Anion Gap 9 5-15 Blood Urea Nitrogen 22 9-23 mg/dL Creatinine 1.27 0.700-1.30 mg/dL Glomerular Filtration Rate Calc 62 >90 mL/min BUN/Creatinine Ratio 17.3 10.0-20.0 Serum Glucose 84 74-106 mg/dL Calcium Level 9.5 8.7-10.4 mg/dL SEPSIS Sepsis Screen Date sepsis recognized/suspect: Feb 28, 2025 Time Sepsis recognized/suspect: 1528 Recent Procedure: No On Antibiotic Therapy: No Respiratory Rate >20: No Heart Rate >90: No Temp<36 C (96.8 F) or >38.3 C: No SBP <90 or MAP <65 mmHG: No New Acute Mental Status Change: No Is the patient on CPAP, BIPAP,: No Physician Orders Ls Spine Wo Contrast (02/28/25 15:40) Heplock Iv (02/28/25 ) Sodium Chloride 0.9% (02/28/25 17:00) Vital Signs Date Time Temp Pulse Resp B/P (MAP) Pulse Ox O2 Delivery O2 Flow Rate FiO2 02/28/25 17:16 98 18 124/90 02/28/25 17:16 98 18 96 Room Air 02/28/25 17:16 98.7 98 18 124/90 (101) 96 98.7 02/28/25 16:43 84 18 125/86 02/28/25 15:25 97.4 77 18 122/92 98 97.4 Laboratory Tests Test 02/28/25 17:12 White Blood Count 9.9 10^3/uL (4.4-10.8) Medications Medications Dose Ordered Sig/Lance Route Start Time Stop Time Status Last Admin Dose Admin Hydromorphone HCl 2 mg ONCE ONCE IM 02/28/25 16:30 02/28/25 16:31 DC 02/28/25 16:43 2 MG Ondansetron HCl 4 mg ONCE ONCE PO 02/28/25 16:30 02/28/25 16:31 DC 02/28/25 16:42 4 MG Assessment/Plan Assessment/Plan Complicated Cystits Lumbar degenerative disc disease Acute intractable lower back pain likely due to above Abdomen/Pelvis CT: No acute abdominopelvic abnormality. Mild biliary ductal dilatation with an 8 mm partially fat density lesion seen in the region of the distant common bile duct Lumbar Spine CT: Moderate lumbar degenerative disc disease. U/A positive for UTI Urine culture ordered Started on ceftriaxone pain management with Dilaudid Zofran 4 MG IV q4h IV NS BPH PSA total+% Free Flomax 0.4 mg p.o. daily History of AFib on dabigatran HTN continue home medication on Losartan Diet: Cardiac Goals of care: Full code, discussed for >16 minutes on 03/01/25 Plan discussed with patient Plan discussed with Dr. Bay Plan discussed with: Patient Date of Service: Feb 28, 2025 Billing Provider: HERB BAY MD Common Visit Codes: [id number] INP/OBS CARE (HIGH) ANGUS HWANG RESIDENT Feb 28, 2025 22:26 HERB BAY MD Mar 05, 2025 12:05
[2025-02-28] MEDS ORDERED: ONDANSETRON HCL 4 MG/2 ML VIAL IV PRN (23:00)
[2025-02-28] MEDS: IOHEXOL 300 MG/ML 100ML BOTTLE IJ ONE (23:32)
[2025-02-28 23:34] LABS: Alanine Aminotransferase 18.0 U/L (7-40); Albumin 4.1 g/dL (3.2-4.8); Alkaline Phosphatase 93.0 U/L (46-116); Magnesium 1.9 mg/dL (1.6-2.6); Total Protein 7.5 g/dL (5.7-8.2)
[2025-02-28 23:35] LABS: Bilirubin, Direct 0.2 mg/dL (<0.3); Bilirubin, Total 0.8 mg/dL (0.2-1.0)
[2025-02-28 23:38] LABS: INR 1.09 (0.9-1.15); Partial Thromboplastin Time 33.1 SEC (24.5-34.5); Prothrombin Time 11.5 sec (9.3-11.8)
[2025-02-28] MEDS: SODIUM CHLORIDE 0.9% 1,000 ML IV ONE (23:38)
[2025-02-28 23:49] VITALS: PULSE 97; RESP 20; O2SAT 97
[2025-03-01] VITALS (8 sets, daily range): BP systolic 118–148; BP diastolic 84–107; PULSE 75–96; RESP 16–20; TEMP 97.7–98.6; O2SAT 97–100
[2025-03-01] MEDS: POTASSIUM CHL 20 Meq TABLET PO ONE ×2 (00:03→12:58)
--- NOTE | 2025-03-01 00:05 | DVH ---
Exam: CT CT AB PEL WITH IV CON ONLY History: UTI, bladder cancer Comparison Study: None TECHNIQUE: A digital boat joiner image was obtained. During the uneventful, intravenous administration of c ontrast material, multislice data acquisition was obtained through the abdomen and pelvis. The data s et was subsequently reconstructed into multiplanar reformats. RADIATION DOSE: CTDI vol 25.9 mGy. DLP 1631.89 mGy.cm Findings: Lungs: Calcified granuloma within the left lower lobe. Liver: Unremarkable. Spleen: Unremarkable. Pancreas: Unremarkable. Gallbladder: The common bile duct is mildly dilated with an 8 mm partially fat density lesion seen in the region of the distal common bile duct. Adrenals: Unremarkable Kidneys: Bilateral renal cysts. No hydronephrosis. Pelvic Viscera: Unremarkable. Vasculature: Unremarkable. Retroperitoneum: Unremarkable. Bowel: No bowel obstruction. The appendix is normal. Musculoskeletal: Unremarkable. Soft tissues: Unremarkable Impression: 1. No acute abdominopelvic abnormality. 2. Mild biliary ductal dilatation with an 8 mm partially fat density lesion seen in the region of the distant common bile duct. A nonemergent MRCP is suggested in further assessment.
[2025-03-01] MEDS: HYDROcodone-ACET 5/325MG TAB PO PRN (02:53)
[2025-03-01] MEDS: SODIUM CHLORIDE 0.9% 1,000 ML IV ONE (02:55)
[2025-03-01] MEDS: TAMSULOSIN HYDROCHLORIDE 0.4 MG CAP PO ONE (04:38)
[2025-03-01] MEDS: SODIUM CHLOR 0.9% PF (SALINE LOCK) 10ML VIAL/SYR IV SCH (05:59)
[2025-03-01] MEDS ORDERED: ENOXAPARIN SOD 120 MG/0.8 ML SYRINGE SC SCH (10:00)
[2025-03-01 10:23] LABS: Hemoglobin 13.3 g/dL (13.5-17.5)
[2025-03-01 10:24] LABS: Hematocrit 39.7 % (41.0-53.0); Mean Corpuscular Hemoglobin 24.9 pg (28.0-32.0); Mean Corpuscular Volume 74.1 fL (80.0-100.0); Nucleated Red Blood Cells % 0.0 %
[2025-03-01 10:41] LABS: Alanine Aminotransferase 14 U/L (7-40); Albumin 3.8 g/dL (3.2-4.8); Alkaline Phosphatase 86 U/L (46-116); Anion Gap 9 (5-15); BUN/Creatinine Ratio 21.4 (10.0-20.0); Bilirubin, Total 0.8 mg/dL (0.2-1.0); Blood Urea Nitrogen 22 mg/dL (9-23); Calcium 9.0 mg/dL (8.7-10.4); Carbon Dioxide 28 mmol/L (20-31); Chloride 100 mmol/L (98-107); Sodium 137 mmol/L (136-145); Total Protein 6.9 g/dL (5.7-8.2)
[2025-03-01 10:43] LABS: Glucose 117 mg/dL (74-106); Potassium 3.2 mmol/L (3.5-5.1)
--- NOTE | 2025-03-01 12:20 | DVHPN2 ---
Reviewed: Care Plan, H&P, Labs, Medications, Previous Orders, Radiology Changes from previous H/P or p: No Changes Objective Vitals Vital Signs Date Time Temp Pulse Resp B/P (MAP) Pulse Ox O2 Delivery O2 Flow Rate FiO2 03/01/25 08:57 97.8 87 19 142/106 (118) 97 97.8 03/01/25 08:00 Room Air* 0 21 Intake/Output Intake and Output 03/01/25 07:00 Intake Total 0 ml Balance 0 ml Intake Oral 0 ml # Voids 1 Medications Current Medications Medications Dose Ordered Sig/Lance Route Start Time Stop Time Status Last Admin Dose Admin Sodium Chloride 10 ml Q8HR IV 03/01/25 06:00 03/01/25 05:59 10 ML Acetaminophen/ Hydrocodone Bitart 1 tab Q4HP PRN PO 02/28/25 23:00 03/01/25 02:53 1 TAB Ondansetron HCl 4 mg Q4HP PRN IV 02/28/25 23:00 Ceftriaxone Sodium/Dextrose 50 ml @ 50 mls/hr DAILY IV 03/01/25 10:00 UNV Enoxaparin Sodium 110 mg Q12HR SC 03/01/25 10:00 Hold Ceftriaxone Sodium 50 ml @ 100 mls/hr DAILY@2100 IV 03/01/25 21:00 Tamsulosin HCl 0.4 mg QPM PO 03/01/25 18:00 Laboratory Results Laboratory Tests 03/01/25 09:39 Chemistry Test 02/28/25 17:12 03/01/25 09:39 Albumin 4.1 g/dL (3.2-4.8) 3.8 g/dL (3.2-4.8) Calcium Level 9.5 mg/dL (8.7-10.4) 9.0 mg/dL (8.7-10.4) Magnesium Level 1.9 mg/dL (1.6-2.6) Total Protein 7.5 g/dL (5.7-8.2) 6.9 g/dL (5.7-8.2) Coagulation Test 02/28/25 23:13 Prothrombin Time 11.5 sec (9.3-11.8) Prothrombin Time INR 1.09 (0.9-1.15) Activated Partial Thromboplast Time 33.1 SEC (24.5-34.5) LFT Test 02/28/25 17:12 03/01/25 09:39 Alanine Aminotransferase (ALT) 18 U/L (7-40) 14 U/L (7-40) Alkaline Phosphatase 93 U/L (46-116) 86 U/L (46-116) Aspartate Amino Transferase (AST) 24 U/L (13-40) 14 U/L (13-40) Direct Bilirubin 0.2 mg/dL (<0.3) Total Bilirubin 0.8 mg/dL (0.2-1.0) 0.8 mg/dL (0.2-1.0) Urinalysis Test 02/28/25 17:22 Urine Color Yellow (Yellow) Urine Clarity Turbid (Clear) H Urine pH 5.5 (5.0-9.0) Urine Specific [place] 1.030 (1.001-1.035) Urine Protein 1+ (Negative) H Urine Ketones Trace (Negative) Urine Blood 3+ /uL (Negative) H Urine Nitrite Negative (Negative) Urine Bilirubin Negative (Negative) Urine Urobilinogen Normal mg/dL (Negative) Urine Leukocyte Esterase 2+ /uL (Negative) Urine RBC 641 /hpf (0 - 3) Urine Microscopic WBC 93 /HPF (0-3) H Urine Squamous Epithelial Cells Few /hpf (<5) Urine Bacteria Few /hpf (None Seen) H Urine Mucus Few (None Seen) Urine Glucose Normal mg/dL (Normal) Labs and/or images reviewed: Labs reviewed by me, Image(s) reviewed by me Assessment/Plan Assessment/Plan Sepsis secondary to urinary tract infection: Blood cultures urine cultures Possible pyelonephritis Acute urinary tract infection: Rocephin Severe DJD lumbar spine BPH: Check PSA History of AFib Hypertension History of bladder tumor surgery [facility], consult for Urology Dr. Wood Time spent 70 minutes Advanced care planning time 20 minutes Patient is full code Plan discussed with: Patient My Orders Orders - OCTAVIO BE MD Procedure Category Date Status Time Blood Culture NESTOR 03/01/25 Transmitted 12:08 Date of Service: Mar 01, 2025 Billing Provider: OCTAVIO BE MD Common Visit Codes: [id number] CARE 30-74 MIN OCTAVIO BE MD Mar 01, 2025 12:20
[2025-03-01] MEDS: TAMSULOSIN HYDROCHLORIDE 0.4 MG CAP PO SCH (16:57)
[2025-03-02] VITALS (8 sets, daily range): BP systolic 136–159; BP diastolic 96–119; PULSE 79–101; RESP 13–19; TEMP 97.9–98.9; O2SAT 97–100
[2025-03-02 05:16] LABS: Hematocrit 42.3 % (41.0-53.0); Hemoglobin 14.1 g/dL (13.5-17.5); Mean Corpuscular Hemoglobin 24.7 pg (28.0-32.0); Mean Corpuscular Volume 74.3 fL (80.0-100.0); Nucleated Red Blood Cells % 0.1 %
[2025-03-02 05:34] LABS: Alanine Aminotransferase 13 U/L (7-40); Albumin 4.1 g/dL (3.2-4.8); Alkaline Phosphatase 90 U/L (46-116); Anion Gap 9 (5-15); BUN/Creatinine Ratio 18.6 (10.0-20.0); Bilirubin, Total 0.8 mg/dL (0.2-1.0); Blood Urea Nitrogen 18 mg/dL (9-23); Calcium 9.8 mg/dL (8.7-10.4); Carbon Dioxide 28 mmol/L (20-31); Chloride 101 mmol/L (98-107); Potassium 3.6 mmol/L (3.5-5.1); Sodium 138 mmol/L (136-145); Total Protein 7.4 g/dL (5.7-8.2)
[2025-03-02 05:37] LABS: Glucose 107 mg/dL (74-106)
[2025-03-02 10:07] LABS: Prostate Specific Antigen 5.7 ng/mL (0.0-4.0)
[2025-03-02] MEDS ORDERED: LOSA-535 PO (10:16)
[2025-03-02] MEDS ORDERED: CHLO25TA2 PO (10:16)
[2025-03-02] MEDS ORDERED: DILT180C49 PO (10:16)
[2025-03-02] MEDS ORDERED: SIMV40TA18 PO (10:16)
[2025-03-02] MEDS ORDERED: DABI150C5 PO (10:16)
--- NOTE | 2025-03-02 10:44 | DVHINCON2 ---
Date of service: Mar 02, 2025 Referring Physician Hospitalist Reason for Consultation BPH, history of bladder tumor surgery, pyelonephritis History of Present Illness History Source: Patient, RN Notes, MD Notes, Old Records Exam Limitations: No limitations HPI 64 yo male known to urology for bladder cancer s/p TURBT 02/02/25. Patient is awaiting BCG treatment. Due to ongoing national shortage of BCG he has not yet recieved it. He c/o gross hematuria 1 week ago. 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 Muscularis propria present, no definite invasion. CIS not definite. Home Meds Active Scripts Aspirin (Aspirin Low Dose) 81 Mg Tab, 81 MG PO DAILY, #30 TAB Prov:KELTON DENISE MD 04/23/22 Reported Medications Diltiazem Hcl (Dilt-Xr) 180 Mg Cap, 180 MG PO DAILY, CAP 03/02/25 Chlorthalidone (Chlorthalidone) 25 Mg Tab, 25 MG PO DAILY, TAB 03/02/25 Simvastatin (Simvastatin) 40 Mg Tab, 1 TAB PO QPM, #30 TAB 5 Refills 03/02/25 Losartan Potassium (Losartan Potassium) 100 Mg Tab, 100 MG PO DAILY for 30 Days, MG 03/02/25 Dabigatran Etexilate Mesylate (Pradaxa) 150 Mg Cap, 1 CAP PO BID, #180 CAP 1 Refill 03/02/25 Past Medical History Patient Family History: Arthritis G8 FATHER Hypertension G8 MOTHER, Onset:Childhood G8 FATHER H&P Exam Vital Signs Vital Signs Date Time Temp Pulse Resp B/P (MAP) Pulse Ox O2 Delivery O2 Flow Rate FiO2 03/02/25 08:40 98.9 91 18 136/96 (109) 97 98.9 03/02/25 08:00 Room Air* 0 21 Labs/Xrays Labs Test 03/02/25 04:22 02/28/25 23:13 02/28/25 17:22 02/28/25 17:12 Range/Units White Blood Count 7.5 4.4-10.8 10^3/uL Red Blood Count 5.70 4.5-5.90 10^6/uL Hemoglobin 14.1 13.5-17.5 g/dL Hematocrit 42.3 41.0-53.0 % Mean Corpuscular Volume 74.3 L 80.0-100.0 fL Mean Corpuscular Hemoglobin 24.7 L 28.0-32.0 pg Mean Corpuscular Hemoglobin Concent 33.2 32.0-36.0 g/dL Red Cell Distribution Width 13.9 11.8-14.3 % Platelet Count 401 140-450 10^3/uL Mean Platelet Volume 8.0 6.9-10.8 fL Neutrophils (%) (Auto) 68.4 37.0-80.0 % Lymphocytes (%) (Auto) 18.0 10.0-50.0 % Monocytes (%) (Auto) 8.5 0.0-12.0 % Eosinophils (%) (Auto) 4.5 0.0-7.0 % Basophils (%) (Auto) 0.6 0.0-2.0 % Neutrophils # (Auto) 5.1 1.6-8.6 10 ^3/uL Lymphocytes # (Auto) 1.3 0.4-5.4 10 ^3/uL Monocytes # (Auto) 0.6 0-1.3 10 ^3/uL Eosinophils # (Auto) 0.3 0-0.8 10 ^3/uL Basophils # (Auto) 0 0-0.2 10 ^3/uL Nucleated Red Blood Cells 0.1 % Sodium Level 138 136-145 mmol/L Potassium Level 3.6 3.5-5.1 mmol/L Chloride Level 101 98-107 mmol/L Carbon Dioxide Level 28 20-31 mmol/L Anion Gap 9 5-15 Blood Urea Nitrogen 18 9-23 mg/dL Creatinine 0.97 0.700-1.30 mg/dL Glomerular Filtration Rate Calc 86 >90 mL/min BUN/Creatinine Ratio 18.6 10.0-20.0 Serum Glucose 107 H 74-106 mg/dL Calcium Level 9.8 8.7-10.4 mg/dL Total Bilirubin 0.8 0.2-1.0 mg/dL Aspartate Amino Transferase (AST) 13 13-40 U/L Alanine Aminotransferase (ALT) 13 7-40 U/L Alkaline Phosphatase 90 46-116 U/L Total Protein 7.4 5.7-8.2 g/dL Albumin 4.1 3.2-4.8 g/dL Prothrombin Time 11.5 9.3-11.8 sec Prothrombin Time INR 1.09 0.9-1.15 Activated Partial Thromboplast Time 33.1 24.5-34.5 SEC Free Prostate Specific Antigen 0.48 N/A ng/mL Percent Free Prostate Specific Ag 8.4 . % Prostate Specific Antigen Total 5.7 H 0.0-4.0 ng/mL Urine Color Yellow Yellow Urine Clarity Turbid H Clear Urine pH 5.5 5.0-9.0 Urine Specific [place] 1.030 1.001-1.035 Urine Protein 1+ H Negative Urine Ketones Trace Negative Urine Blood 3+ H Negative /uL Urine Nitrite Negative Negative Urine Bilirubin Negative Negative Urine Urobilinogen Normal Negative mg/dL Urine Leukocyte Esterase 2+ Negative /uL Urine RBC 641 0 - 3 /hpf Urine Microscopic WBC 93 H 0-3 /HPF Urine Squamous Epithelial Cells Few <5 /hpf Urine Bacteria Few H None Seen /hpf Urine Mucus Few None Seen Urine Glucose Normal Normal mg/dL Magnesium Level 1.9 1.6-2.6 mg/dL Direct Bilirubin 0.2 <0.3 mg/dL Assessment/Plan Problem List: (1) Bladder cancer (2) Elevated PSA, less than 10 ng/ml (3) BPH (benign prostatic hyperplasia) Plan no acute urologic intervention indicated at this time continue with routine surveillance cystoscopy Stable from urologic standpoint no evidence of infection, obstruction, or acute pathology. f/u out pt as planned signing off Plan discussed with: LACY Kaba NP Mar 02, 2025 10:44
--- NOTE | 2025-03-02 12:10 | DVHPN2 ---
Reviewed: Care Plan, H&P, Labs, Medications, Previous Orders, Radiology Changes from previous H/P or p: No Changes Objective Vitals Vital Signs Date Time Temp Pulse Resp B/P (MAP) Pulse Ox O2 Delivery O2 Flow Rate FiO2 03/02/25 08:40 98.9 91 18 136/96 (109) 97 98.9 03/02/25 08:00 Room Air* 0 21 Intake/Output Intake and Output 03/02/25 07:00 Intake Total 1000 ml Balance 1000 ml Intake Oral 1000 ml # Voids 3 Medications Current Medications Medications Dose Ordered Sig/Lance Route Start Time Stop Time Status Last Admin Dose Admin Sodium Chloride 10 ml Q8HR IV 03/01/25 06:00 03/02/25 06:12 10 ML Acetaminophen/ Hydrocodone Bitart 1 tab Q4HP PRN PO 02/28/25 23:00 03/02/25 10:07 1 TAB Ondansetron HCl 4 mg Q4HP PRN IV 02/28/25 23:00 Ceftriaxone Sodium/Dextrose 50 ml @ 50 mls/hr DAILY IV 03/01/25 10:00 UNV Enoxaparin Sodium 110 mg Q12HR SC 03/01/25 10:00 Hold Ceftriaxone Sodium 50 ml @ 100 mls/hr DAILY@2100 IV 03/01/25 21:00 03/01/25 22:25 100 MLS/HR Tamsulosin HCl 0.4 mg QPM PO 03/01/25 18:00 03/01/25 16:57 0.4 MG Laboratory Results Laboratory Tests 03/02/25 04:22 Chemistry Test 03/02/25 04:22 Albumin 4.1 g/dL (3.2-4.8) Calcium Level 9.8 mg/dL (8.7-10.4) Total Protein 7.4 g/dL (5.7-8.2) LFT Test 03/02/25 04:22 Alanine Aminotransferase (ALT) 13 U/L (7-40) Alkaline Phosphatase 90 U/L (46-116) Aspartate Amino Transferase (AST) 13 U/L (13-40) Total Bilirubin 0.8 mg/dL (0.2-1.0) Urinalysis Test 02/28/25 17:22 Urine Color Yellow (Yellow) Urine Clarity Turbid (Clear) H Urine pH 5.5 (5.0-9.0) Urine Specific [place] 1.030 (1.001-1.035) Urine Protein 1+ (Negative) H Urine Ketones Trace (Negative) Urine Blood 3+ /uL (Negative) H Urine Nitrite Negative (Negative) Urine Bilirubin Negative (Negative) Urine Urobilinogen Normal mg/dL (Negative) Urine Leukocyte Esterase 2+ /uL (Negative) Urine RBC 641 /hpf (0 - 3) Urine Microscopic WBC 93 /HPF (0-3) H Urine Squamous Epithelial Cells Few /hpf (<5) Urine Bacteria Few /hpf (None Seen) H Urine Mucus Few (None Seen) Urine Glucose Normal mg/dL (Normal) Labs and/or images reviewed: Labs reviewed by me, Image(s) reviewed by me Assessment/Plan Assessment/Plan Sepsis secondary to urinary tract infection: Blood cultures pending, urine cultures pending Possible acute pyelonephritis Acute urinary tract infection: Rocephin Severe DJD lumbar spine Acute on Chronic back pain: Physical therapy Chronic AFib : On Pradaxa BPH: PSA slightly high History of AFib Hypertension History of bladder tumor surgery [facility], consult for Urology Dr. Wood appreciated, no further workup Time spent 50 minutes Advanced care planning time 20 minutes Patient is full code Examined the patient with the help of final inspector shuttle MARIO Saeed PCP Dr Issac [place] Plan discussed with: Patient My Orders Orders - OCTAVIO BE MD Procedure Category Date Status Time Blood Culture NESTOR 03/01/25 In Process 12:08 Urine Bacterial NESTOR 03/01/25 Logged Culture 12:17 * Urology Consult CONS 03/01/25 Transmitted 12:18 Date of Service: Mar 02, 2025 Billing Provider: OCTAVIO BE MD Common Visit Codes: [id number] INP/OBS CARE(HIGH) OCTAVIO BE MD Mar 02, 2025 12:10
[2025-03-02] MEDS: LACTULOSE 20Gm/30ML SOLN PO ONE (14:50)
[2025-03-02] MEDS: DABIGATRAN 75 MG CAP PO SCH (21:07)
[2025-03-02] MEDS ORDERED: PATIENTS OWN MEDICATION PO SCH (22:00)
[2025-03-02] MEDS ORDERED: DABIGATRAN PO SCH (22:00)
[2025-03-03 01:00] VITALS: BP_SYST 137; BP_SYST 152; BP_DIAS 107; BP_DIAS 83; PULSE 68; PULSE 81; RESP 18; TEMP 98.6; TEMP 98.8; O2SAT 97; O2SAT 98
[2025-03-03 05:00] VITALS: BP 151/107; PULSE 96; RESP 17; TEMP 98.2; O2SAT 95
[2025-03-03 08:00] VITALS: PULSE 84; RESP 18; O2SAT 98
--- NOTE | 2025-03-03 08:25 | DVHDS2 ---
Discharge Summary Date of Admission Feb 28, 2025 at 22:46 Date of Discharge: Mar 03, 2025 Admitting Diagnosis Low back pain Wounds: None Labs/Diagnostic Data: Laboratory Results Test 03/02/25 04:22 02/28/25 23:13 02/28/25 17:22 02/28/25 17:12 White Blood Count 7.5 10^3/uL (4.4-10.8) Red Blood Count 5.70 10^6/uL (4.5-5.90) Hemoglobin 14.1 g/dL (13.5-17.5) Hematocrit 42.3 % (41.0-53.0) Mean Corpuscular Volume 74.3 fL (80.0-100.0) Mean Corpuscular Hemoglobin 24.7 pg (28.0-32.0) Mean Corpuscular Hemoglobin Concent 33.2 g/dL (32.0-36.0) Red Cell Distribution Width 13.9 % (11.8-14.3) Platelet Count 401 10^3/uL (140-450) Mean Platelet Volume 8.0 fL (6.9-10.8) Neutrophils (%) (Auto) 68.4 % (37.0-80.0) Lymphocytes (%) (Auto) 18.0 % (10.0-50.0) Monocytes (%) (Auto) 8.5 % (0.0-12.0) Eosinophils (%) (Auto) 4.5 % (0.0-7.0) Basophils (%) (Auto) 0.6 % (0.0-2.0) Neutrophils # (Auto) 5.1 10 ^3/uL (1.6-8.6) Lymphocytes # (Auto) 1.3 10 ^3/uL (0.4-5.4) Monocytes # (Auto) 0.6 10 ^3/uL (0-1.3) Eosinophils # (Auto) 0.3 10 ^3/uL (0-0.8) Basophils # (Auto) 0 10 ^3/uL (0-0.2) Nucleated Red Blood Cells 0.1 % Sodium Level 138 mmol/L (136-145) Potassium Level 3.6 mmol/L (3.5-5.1) Chloride Level 101 mmol/L (98-107) Carbon Dioxide Level 28 mmol/L (20-31) Anion Gap 9 (5-15) Blood Urea Nitrogen 18 mg/dL (9-23) Creatinine 0.97 mg/dL (0.700-1.30) Glomerular Filtration Rate Calc 86 mL/min (>90) BUN/Creatinine Ratio 18.6 (10.0-20.0) Serum Glucose 107 mg/dL (74-106) Calcium Level 9.8 mg/dL (8.7-10.4) Total Bilirubin 0.8 mg/dL (0.2-1.0) Aspartate Amino Transferase (AST) 13 U/L (13-40) Alanine Aminotransferase (ALT) 13 U/L (7-40) Alkaline Phosphatase 90 U/L (46-116) Total Protein 7.4 g/dL (5.7-8.2) Albumin 4.1 g/dL (3.2-4.8) Prothrombin Time 11.5 sec (9.3-11.8) Prothrombin Time INR 1.09 (0.9-1.15) Activated Partial Thromboplast Time 33.1 SEC (24.5-34.5) Free Prostate Specific Antigen 0.48 ng/mL (N/A) Percent Free Prostate Specific Ag 8.4 % (.) Prostate Specific Antigen Total 5.7 ng/mL (0.0-4.0) Urine Color Yellow (Yellow) Urine Clarity Turbid (Clear) Urine pH 5.5 (5.0-9.0) Urine Specific [place] 1.030 (1.001-1.035) Urine Protein 1+ (Negative) Urine Ketones Trace (Negative) Urine Blood 3+ /uL (Negative) Urine Nitrite Negative (Negative) Urine Bilirubin Negative (Negative) Urine Urobilinogen Normal mg/dL (Negative) Urine Leukocyte Esterase 2+ /uL (Negative) Urine RBC 641 /hpf (0 - 3) Urine Microscopic WBC 93 /HPF (0-3) Urine Squamous Epithelial Cells Few /hpf (<5) Urine Bacteria Few /hpf (None Seen) Urine Mucus Few (None Seen) Urine Glucose Normal mg/dL (Normal) Magnesium Level 1.9 mg/dL (1.6-2.6) Direct Bilirubin 0.2 mg/dL (<0.3) Other Laboratory Tests 03/02/25 04:22 Brief Hx & Hospital Course: 64-year-old male with a history of chronic back pain came in complaining of exacerbation of the pain. Found to have sepsis secondary to urinary tract infection. Blood cultures negative urine cultures mixed. Possible acute pyelonephritis treated with Rocephin patient has severe DJD of the lumbar spine by CT received physical therapy recommended long-term placement for rehab also had chronic AFib on Pradaxa history of BPH PSA slightly high seen by Urology Dr. Wood advised no further urological workup. History of bladder tumor surgery at [facility] Patient is being discharged to long-term facility for IV Rocephin for complicated UTI and for physical therapy for his chronic back pain Consults/Reason for consult Urology Dr. Wood Operations or Procedures CT abdomen pelvis without contrast Condition at Discharge: Fair Final Diagnosis/Problems List Sepsis secondary to urinary tract infection: Blood cultures pending, urine cultures pending Possible acute pyelonephritis Acute urinary tract infection: Rocephin Severe DJD lumbar spine Acute on Chronic back pain: Physical therapy Chronic AFib : On Pradaxa BPH: PSA slightly high History of AFib Hypertension History of bladder tumor surgery [facility], consult for Urology Dr. Wood appreciated, no further workup Discharge Disposition: Care Home Facility Discharge Instruct/Medications Diet: Cardiac 2g Na,low cholest Activity: Light activity Follow Up/Referral: Follow up with the long-term Medications: Rocephin 1 g IV daily for two weeks for complicated UTI See list for other meds Scheduled Aspirin (Aspirin Low Dose), 81 MG PO DAILY Chlorthalidone (Chlorthalidone), 25 MG PO DAILY, (Reported) Dabigatran Etexilate Mesylate (Pradaxa), 1 CAP PO BID, (Reported) Diltiazem Hcl (Dilt-Xr), 180 MG PO DAILY, (Reported) Losartan Potassium (Losartan Potassium), 100 MG PO DAILY, (Reported) Simvastatin (Simvastatin), 1 TAB PO QPM, (Reported) 39 (Time taken for discharge summary 39 minutes) Discharge Statement: "Patient was advised to return to the ER or call 911 if any headaches, dizziness, shortness of breath, chest pain, abdominal pain, bleeding, fevers, or worsening of medical condition. Patient was counseled about treatment plan, medications, possible side effects, patientverbalized understanding. All questions were answered to the best of my ability. This discharge took greater then 30 minutes in planning, reviewing documentation, counseling the patient, and discussing with other team members." ASSESSMENT ASSESSMENT Assessment Sepsis secondary to urinary tract infection: Blood cultures pending, urine cultures pending Possible acute pyelonephritis Acute urinary tract infection: Rocephin Severe DJD lumbar spine Acute on Chronic back pain: Physical therapy Chronic AFib : On Pradaxa BPH: PSA slightly high History of AFib Hypertension History of bladder tumor surgery [facility], consult for Urology Dr. Wood appreciated, no further workup Date of Service: Mar 03, 2025 Billing Provider: OCTAVIO BE MD Common Visit Codes: [id number] DISCH DAY >30min OCTAVIO BE MD Mar 03, 2025 08:25
[2025-03-03 09:00] VITALS: BP 147/103; PULSE 94; RESP 18; TEMP 97.7; O2SAT 97
[2025-03-03 09:42] LABS: COVID19 ANTIGEN SOFIA FIA NEGATIVE (NEGATIVE)
[2025-03-03 13:00] VITALS: BP 166/109; PULSE 92; RESP 18; TEMP 98.6; O2SAT 99
[2025-03-03] MEDS: CHLORTHALIDONE 25 MG TAB PO ONE (16:22)
== END 2025-03-03 18:15 | DRG 872 ==
LOC: ER 15:22 → OVERFLOW 22:46 → WEST WING 03-01 02:43
PROVIDERS: ADMIT Family Medicine; ATTEND Family Medicine
PROC: 05HA33Z Insertion of Infusion Device into Left Brachial Vein, Percutaneous Approach (ICD-10-PCS; principal; 2025-03-03)
PROC: B54NZZA Ultrasonography of Left Upper Extremity Veins, Guidance (ICD-10-PCS; 2025-03-03)
DX: A41.9 Sepsis, unspecified organism (principal); I48.20 Chronic atrial fibrillation, unspecified; N39.0 Urinary tract infection, site not specified; N10 Acute pyelonephritis; M47.896 Other spondylosis, lumbar region; I10 Essential (primary) hypertension; G89.29 Other chronic pain; Z20.822 Contact with and (suspected) exposure to COVID-19; N40.1 Benign prostatic hyperplasia with lower urinary tract symptoms; K83.8 Other specified diseases of biliary tract; Z79.01 Long term (current) use of anticoagulants; Z85.51 Personal history of malignant neoplasm of bladder; Z79.899 Other long term (current) drug therapy
CPT/HCPCS: 36415; 72131; 74177; 80048; 80053; 80076; 81001; 83735; 84154; 85025; 85610; 85730; 87040; 87086; 87426; 96372; 97163; G0378; Q0162